=== PATIENT | female | born 1935 | race Caucasian/White ===

== ENCOUNTER 2021-12-31 14:07 | Emergency (ER) | payer MEDICARE, OTHER ==
[~2021-12-31] VITALS: Ht 160 cm; Wt 60.0 kg
[2021-12-31] MEDS ORDERED: NS IV 1000 ML 1,000 ML IV STA (14:22)
--- NOTE | 2021-12-31 14:24 | ED General ---
General Chief Complaint: General Problems/Pain Stated Complaint: UTI,DEHYDRATION Source of Information: Patient, EMS, Family History of Present Illness Date Seen by Provider: Dec 31, 2021 Time Seen by Provider: 14:09 Initial Comments 86-year-old female presenting by EMS from home. She had increased weakness and fatigue today. She had complained to her family that she was having pains in her chest and neck last night. She denied having any new pains here in the ED but states she has some chronic generalized pain. She denies fever or chills. She has had a history of recurrent UTIs and dehydration. In the past she has had similar symptoms as today when she had bladder infections. She does take some chronic antibiotics to treat for a chronic UTI. Timing/Duration: 2-3 Days, Getting Worse Severity: Moderate Modifying Factors: worse with Movement Associated Systoms: Chest Pain (Told her family that she had chest pain last night); No Cough, No Diaphoresis, No Fever/Chills, No Headaches; Loss of Appetite, Malaise; No Nausea/Vomiting, No Rash, No Seizure, No Shortness of Air, No Syncope; Weakness (Generalized) Allergies and Home Medications Allergies Coded Allergies: Sulfa (Sulfonamide Antibiotics) (Verified Allergy, Unknown, 12/31/21) codeine (Verified Allergy, Unknown, 12/31/21) iodine (Verified Allergy, Unknown, 12/31/21) Patient Home Medication List Home Medication List Reviewed: Yes Cephalexin (Cephalexin) 500 Mg Capsule, 500 MG PO TID Prescribed by: ERMIAS ELLIOTT on 12/31/21 1631 Review of Systems Review of Systems Constitutional: see HPI EENTM: no symptoms reported Respiratory: no symptoms reported Cardiovascular: see HPI Gastrointestinal: No nausea, No vomiting Genitourinary: frequency, incontinence Musculoskeletal: back pain, joint pain, neck pain Skin: No rash Psychiatric/Neurological: See HPI; Denies Headache; Weakness Hematologic/Lymphatic: Denies Blood Clots Past Lcclnor-Rihskz-Ivurot Hx Patient Social History Tobacco Use?: No Past Medical History Surgery/Hospitalization HX: Chronic UTI Physical Exam Vital Signs Vital Signs - First Documented 12/31/21 14:15 Temp 35.9 Pulse 55 Resp 16 B/P (MAP) 102/60 (74) Pulse Ox 96 O2 Delivery Room Air Capillary Refill : Height, Weight, BMI Height: '" Weight: lbs. oz. kg; BMI Method: General Appearance: No Apparent Distress, Chronically ill, Thin, Other (Appears older than stated age) HEENT: No Moist Mucous Membranes (Slightly dry mucous membranes) Neck: Non Tender, Supple Respiratory: Chest Non Tender, Lungs Clear, Normal Breath Sounds, No Accessory Muscle Use, No Respiratory Distress Cardiovascular: Regular Rate, Rhythm, Normal Peripheral Pulses Gastrointestinal: Normal Bowel Sounds, No Pulsatile Mass, Non Tender, Soft Rectal: Deferred Extremity: Normal Capillary Refill, No Pedal Edema Neurologic/Psychiatric: Alert, Oriented x3 Skin: Normal Color, Warm/Dry Progress/Results/Core Measures Suspected Sepsis SIRS Temperature: Pulse: Respiratory Rate: Laboratory Tests 12/31/21 14:13: White Blood Count 13.1H Blood Pressure / Mean: Laboratory Tests 12/31/21 14:13: Creatinine 1.50H, Platelet Count 198, Total Bilirubin 0.6 Results/Orders Lab Results Laboratory Tests Test 12/31/21 14:13 Range/Units White Blood Count 13.1 H 4.3-11.0 10^3/uL Red Blood Count 2.84 L 3.80-5.11 10^6/uL Hemoglobin 9.8 L 11.5-16.0 g/dL Hematocrit 30 L 35-52 % Mean Corpuscular Volume 106 H 80-99 fL Mean Corpuscular Hemoglobin 35 H 25-34 pg Mean Corpuscular Hemoglobin Concent 33 32-36 g/dL Red Cell Distribution Width 15.9 H 10.0-14.5 % Platelet Count 198 130-400 10^3/uL Mean Platelet Volume 10.2 9.0-12.2 fL Immature Granulocyte % (Auto) 1 % Neutrophils (%) (Auto) 84 H 42-75 % Lymphocytes (%) (Auto) 6 L 12-44 % Monocytes (%) (Auto) 9 0-12 % Eosinophils (%) (Auto) 0 0-10 % Basophils (%) (Auto) 0 0-10 % Neutrophils # (Auto) 11.0 H 1.8-7.8 10^3/uL Lymphocytes # (Auto) 0.8 L 1.0-4.0 10^3/uL Monocytes # (Auto) 1.2 H 0.0-1.0 10^3/uL Eosinophils # (Auto) 0.0 0.0-0.3 10^3/uL Basophils # (Auto) 0.1 0.0-0.1 10^3/uL Immature Granulocyte # (Auto) 0.1 0.0-0.1 10^3/uL Neutrophils % (Manual) 85 % Lymphocytes % (Manual) 6 % Monocytes % (Manual) 8 % Eosinophils % (Manual) 1 % Urine Color YELLOW Urine Clarity CLOUDY Urine pH 6.0 5-9 Urine Specific [place] 1.015 L 1.016-1.022 Urine Protein 1+ H NEGATIVE Urine Glucose (UA) TRACE H NEGATIVE Urine Ketones TRACE H NEGATIVE Urine Nitrite NEGATIVE NEGATIVE Urine Bilirubin NEGATIVE NEGATIVE Urine Urobilinogen 0.2 < = 1.0 MG/DL Urine Leukocyte Esterase 2+ H NEGATIVE Urine RBC (Auto) 2+ H NEGATIVE Urine RBC NONE /HPF Urine WBC TNTC H /HPF Urine Crystals NONE /LPF Urine Bacteria NEGATIVE /HPF Urine Casts NONE /LPF Urine Mucus NEGATIVE /LPF Urine Culture Indicated YES Sodium Level 136 135-145 MMOL/L Potassium Level 4.5 3.6-5.0 MMOL/L Chloride Level 100 98-107 MMOL/L Carbon Dioxide Level 25 21-32 MMOL/L Anion Gap 11 5-14 MMOL/L Blood Urea Nitrogen 34 H 7-18 MG/DL Creatinine 1.50 H 0.60-1.30 MG/DL Estimat Glomerular Filtration Rate 33 BUN/Creatinine Ratio 23 Glucose Level 181 H 70-105 MG/DL Calcium Level 8.6 8.5-10.1 MG/DL Corrected Calcium 8.9 8.5-10.1 MG/DL Total Bilirubin 0.6 0.1-1.0 MG/DL Aspartate Amino Transf (AST/SGOT) 22 5-34 U/L Alanine Aminotransferase (ALT/SGPT) < 5 0-55 U/L Alkaline Phosphatase 45 40-136 U/L Total Protein 6.2 L 6.4-8.2 GM/DL Albumin 3.6 3.2-4.5 GM/DL My Orders Orders - ERMIAS ELLIOTT MD Comprehensive Metabolic Panel (12/31/21 14:22) Ua Culture If Indicated (12/31/21 14:22) Ed Iv/Invasive Line Start (12/31/21 14:22) Cbc With Automated Diff (12/31/21 14:22) Straight Cath For Spec.-Adult (12/31/21 14:22) Ns Iv 1000 Ml (Sodium Chloride 0.9%) (12/31/21 14:22) Urine Culture (12/31/21 14:13) Manual Differential (12/31/21 14:13) Ceftriaxone 1 Gm Pre-Mix (Rocephin 1 Gm (12/31/21 15:20) Ekg Tracing (12/31/21 16:25) Vital Signs/I&O 12/31/21 12/31/21 14:15 15:59 Temp 35.9 35.9 Pulse 55 83 Resp 16 16 B/P (MAP) 102/60 (74) 109/58 Pulse Ox 96 98 O2 Delivery Room Air Room Air Capillary Refill : Progress Note #1: Progress Note Check basic labs as well as urinalysis. Give IV fluids 1 L normal saline for hydration. Differential diagnosis includes UTI, sepsis, dehydration, electrolyte imbalance, anemia Progress Note #2: Progress Note Labs show an elevated white blood cell count of 13.1 with anemia as her hemoglobin is 9.8. Her chemistry panel shows some renal insufficiency or dehydration with a creatinine of 1.5. Urinalysis does show signs of infection. The culture will be sent. Administer Rocephin 1 g IV and continue with cephalex in for UTI. Counseled to follow-up through the clinic for continued concerns and increase fluid intake. ECG Initial ECG Impression Date: Dec 31, 2021 Initial ECG Impression Time: 16:18 Initial ECG Rate: 53 Initial ECG Rhythm: Normal Sinus Initial ECG Comparisson: No Previous ECG Available Comment Sinus rhythm with a heart rate of 53 bpm. PVC complexes are present. Right bundle branch block. VT interval 122 ms. QT interval 497 ms with a QTc interval 467 ms. She has no acute STEMI findings. There is no prior tracing available for comparison. Departure Impression Primary Impression: Cystitis without hematuria Additional Impression: Dehydration Disposition: 01 HOME, SELF-CARE Condition: Stable Departure-Patient Inst. Decision time for Depature: 16:29 Referrals: AMBER OZUNA MD (PCP/Family) Primary Care Physician Patient Instructions: Urinary Tract Infection, Adult ED, Dehydration, Adult ED Add. Discharge Instructions: Take the full course of antibiotics to treat for urine infection. Try to drink more water to help flush out your urine and clear the infection Check with clinic for continued concerns All discharge instructions reviewed with patient and/or family. Voiced understanding. Scripts Cephalexin (Cephalexin) 500 Mg Capsule 500 MG PO TID for UTI for 10 Days, #30 CAP 0 Refills Prov: REMIAS ELLIOTT MD 12/31/21 ERMIAS ELLIOTT MD Dec 31, 2021 14:24
[2021-12-31 14:39] LABS: BASOPHILS # (AUTO) 0.1 10^3/uL (0.0-0.1); BASOPHILS % (AUTO) 0 % (0-10); EOSINOPHILS % (AUTO) 0 % (0-10); HEMATOCRIT 30 % (35-52); HEMOGLOBIN 9.8 g/dL (11.5-16.0); LYMPHOCYTES # (AUTO) 0.8 10^3/uL (1.0-4.0); LYMPHOCYTES % (AUTO) 6 % (12-44); MEAN CORPUSCULAR HEMOGLOBIN 35 pg (25-34); MEAN CORPUSCULAR HGB CONC 33 g/dL (32-36); MEAN CORPUSCULAR VOLUME 106 fL (80-99); MEAN PLATELET VOLUME 10.2 fL (9.0-12.2); MONOCYTES # (AUTO) 1.2 10^3/uL (0.0-1.0); MONOCYTES % (AUTO) 9 % (0-12); NEUTROPHILS % (AUTO) 84 % (42-75); PLATELET COUNT 198 10^3/uL (130-400); WHITE BLOOD COUNT 13.1 10^3/uL (4.3-11.0)
[2021-12-31 14:44] LABS: BILIRUBIN,URINE NEGATIVE (NEGATIVE); COLOR,URINE YELLOW; GLUCOSE, URINE (UA) TRACE (NEGATIVE); KETONES,URINE TRACE (NEGATIVE); LEUKOCYTE ESTERASE ,URINE 2+ (NEGATIVE); NITRITE,URINE NEGATIVE (NEGATIVE); PROTEIN,URINE 1+ (NEGATIVE)
[2021-12-31 14:47] LABS: BACTERIA,URINE NEGATIVE /HPF; CLARITY,URINE CLOUDY; WBC,URINE TNTC /HPF
[2021-12-31 14:54] LABS: ALANINE AMINOTRANSFERASE < 5 U/L (0-55); ALBUMIN 3.6 GM/DL (3.2-4.5); ALKALINE PHOSPHATASE 45 U/L (40-136); BILIRUBIN,TOTAL 0.6 MG/DL (0.1-1.0); BUN/CREATININE RATIO 23; CALCIUM 8.6 MG/DL (8.5-10.1); CARBON DIOXIDE 25 MMOL/L (21-32); CHLORIDE 100 MMOL/L (98-107); GFR ESTIMATED 33; GLUCOSE 181 MG/DL (70-105); POTASSIUM 4.5 MMOL/L (3.6-5.0); SODIUM 136 MMOL/L (135-145); TOTAL PROTEIN 6.2 GM/DL (6.4-8.2)
[2021-12-31] MEDS ORDERED: cefTRIAXone 1 GM PRE-MIX 50 ML IV STA (15:20)
[2021-12-31 15:22] LABS: EOSINOPHILS % (MANUAL) 1 %; LYMPHOCYTES % (MANUAL) 6 %; MONOCYTES % (MANUAL) 8 %; NEUTROPHILS % (MANUAL) 85 %
[2021-12-31 15:59] VITALS: BP 109/58
[2021-12-31] MEDS ORDERED: CEPH500C PO (16:31)
== END 2021-12-31 16:37 | disposition home or self-care (01) ==
LOC: ER FS 14:09
DX: N30.90 Cystitis, unspecified without hematuria (principal); E86.0 Dehydration
CPT/HCPCS: 36415; 51701; 80053; 81000; 85007; 85027; 87077; 87088; 93005

== ENCOUNTER → 2022-03-22 | Outpatient (CLI) | payer MEDICARE, OTHER ==
[~2022-03-22] MED LIST: CEPH500C PO
[2022-03-22 14:28] LABS: BILIRUBIN,URINE NEGATIVE (NEGATIVE); CLARITY,URINE TURBID; COLOR,URINE YELLOW; GLUCOSE, URINE (UA) NEGATIVE (NEGATIVE); KETONES,URINE NEGATIVE (NEGATIVE); LEUKOCYTE ESTERASE ,URINE 3+ (NEGATIVE); NITRITE,URINE NEGATIVE (NEGATIVE); PROTEIN,URINE TRACE (NEGATIVE)
[2022-03-22 15:13] LABS: RBC,URINE 0-2 /HPF; WBC,URINE TNTC /HPF
[2022-03-22 15:14] LABS: BACTERIA,URINE MODERATE /HPF; SQUAMOUS EPITHELIAL CELL,UR 0-2 /HPF
[2022-03-22 15:15] LABS: HYALINE CASTS, URINE RARE /LPF
== END ==
PROVIDERS: ATTEND Family Medicine
DX: R82.79 Other abnormal findings on microbiological examination of urine (principal)
CPT/HCPCS: 81000; 87077; 87088; 87186

== ENCOUNTER → 2022-04-04 | Outpatient (CLI) | payer MEDICARE, OTHER ==
[2022-04-04 17:06] LABS: BILIRUBIN,URINE NEGATIVE (NEGATIVE); CLARITY,URINE SL CLOUDY; COLOR,URINE YELLOW; GLUCOSE, URINE (UA) TRACE (NEGATIVE); KETONES,URINE NEGATIVE (NEGATIVE); LEUKOCYTE ESTERASE ,URINE 1+ (NEGATIVE); NITRITE,URINE NEGATIVE (NEGATIVE); PROTEIN,URINE NEGATIVE (NEGATIVE)
[2022-04-04 17:12] LABS: BACTERIA,URINE MODERATE /HPF; RBC,URINE RARE /HPF; SQUAMOUS EPITHELIAL CELL,UR 0-2 /HPF; WBC,URINE 25-50 /HPF
== END ==
PROVIDERS: ATTEND Family Medicine
DX: N39.0 Urinary tract infection, site not specified (principal)
CPT/HCPCS: 81000; 87088

== ENCOUNTER 2022-06-17 10:04 | Emergency (ER) | payer MEDICARE, OTHER ==
[~2022-06-17] VITALS: Ht 157.5 cm; Wt 53.5 kg
[2022-06-17] MEDS ORDERED: NS IV 500 ML 500 ML IV STA (10:27)
[2022-06-17 10:30] LABS: BASOPHILS # (AUTO) 0.1 10^3/uL (0.0-0.1); BASOPHILS % (AUTO) 2 % (0-10); EOSINOPHILS # (AUTO) 0.3 10^3/uL (0.0-0.3); EOSINOPHILS % (AUTO) 5 % (0-10); HEMATOCRIT 33 % (35-52); HEMOGLOBIN 10.8 g/dL (11.5-16.0); LYMPHOCYTES # (AUTO) 1.1 10^3/uL (1.0-4.0); LYMPHOCYTES % (AUTO) 19 % (12-44); MEAN CORPUSCULAR HEMOGLOBIN 33 pg (25-34); MEAN CORPUSCULAR HGB CONC 33 g/dL (32-36); MEAN CORPUSCULAR VOLUME 100 fL (80-99); MEAN PLATELET VOLUME 9.7 fL (9.0-12.2); MONOCYTES # (AUTO) 0.4 10^3/uL (0.0-1.0); MONOCYTES % (AUTO) 7 % (0-12); NEUTROPHILS # (AUTO) 3.9 10^3/uL (1.8-7.8); NEUTROPHILS % (AUTO) 67 % (42-75); PLATELET COUNT 240 10^3/uL (130-400); WHITE BLOOD COUNT 5.8 10^3/uL (4.3-11.0)
[2022-06-17 10:38] LABS: INR 0.9 (0.8-1.4); PROTHROMBIN TIME PATIENT 12.9 SEC (12.2-14.7)
--- NOTE | 2022-06-17 10:41 | ED General ---
General Chief Complaint: General Problems/Pain Stated Complaint: LETHARGY Nursing Triage Note: PT TO ROOM [facility] EMS WITH C/O FEELING "MORE TIRED THAT USUAL". PT DENIES ANY OTHER C/O. PT DENIES PAIN. NURSE FROM [facility] STATES THAT PT WAS FEELING TIRED. Source of Information: Patient, EMS, Penitent[facility] Records History of Present Illness Date Seen by Provider: Jun 17, 2022 Time Seen by Provider: 10:12 Initial Comments 86-year-old female presenting by EMS with complaints of feeling more tired than usual. She denies having any pain anywhere. She states that she just did not feel like getting up out of bed. She denies headache, nausea, vomiting, chest pain, cough, abdominal pain, nausea, vomiting, pain with urination. She did just finish antibiotics for UTI. She does have a dry mouth and was asking to drink some water. Otherwise she denied any complaints other than being tired. Associated Systoms: No Chest Pain, No Cough, No Diaphoresis, No Fever/Chills, No Headaches, No Nausea/Vomiting, No Seizure, No Shortness of Air, No Syncope Allergies and Home Medications Allergies Coded Allergies: Sulfa (Sulfonamide Antibiotics) (Verified Allergy, Unknown, 12/31/21) codeine (Verified Allergy, Unknown, 12/31/21) iodine (Verified Allergy, Unknown, 12/31/21) Patient Home Medication List Home Medication List Reviewed: Yes Cefdinir (Cefdinir) 300 Mg Capsule, 300 MG PO BID Prescribed by: ERMIAS ELLIOTT on 06/17/22 1139 Discontinued Medications Cephalexin (Cephalexin) 500 Mg Capsule, 500 MG PO TID Prescribed by: ERMIAS ELLIOTT on 12/31/21 1631 Last Action: Discontinued Review of Systems Review of Systems Constitutional: No chills, No fever EENTM: no symptoms reported; No nose congestion Respiratory: No cough, No short of breath Cardiovascular: No chest pain Gastrointestinal: No nausea, No vomiting Genitourinary: No dysuria Musculoskeletal: no symptoms reported Skin: No rash Psychiatric/Neurological: Denies Headache Hematologic/Lymphatic: Denies Blood Clots Past Kpuzupl-Nndrxq-Clakco Hx Patient Social History Tobacco Use?: No Smoking Status: Never a Smoker Smokeless Tobacco Frequency: Never a User Use of E-Cig and/or Vaping dev: No Use of E-Cig and/or Vaping Miki: Never a User Substance use?: No Alcohol Use?: No Pt feels they are or have been: No Immunizations Up To Date First/Initial COVID19 Vaccinat: 2020 Second COVID19 Vaccination Emanuel: 2020 Past Medical History Surgery/Hospitalization HX: Chronic UTI, Dementia, Atrial Fibrillation, hypertension, Parkinsons Physical Exam Vital Signs Vital Signs - First Documented 06/17/22 10:05 Temp 36.4 Pulse 72 Resp 15 B/P (MAP) 120/53 (75) Pulse Ox 100 O2 Delivery Room Air Capillary Refill : Less Than 3 Seconds Height, Weight, BMI Height: '" Weight: lbs. oz. kg; 21.00 BMI Method: General Appearance: No Apparent Distress HEENT: PERRL/EOMI; No Moist Mucous Membranes (slightly dry mucus membranes) Respiratory: Chest Non Tender, Lungs Clear, Normal Breath Sounds, No Accessory Muscle Use, No Respiratory Distress Cardiovascular: Regular Rate, Rhythm, Normal Peripheral Pulses Gastrointestinal: Normal Bowel Sounds, No Pulsatile Mass, Non Tender, Soft Rectal: Deferred Extremity: Normal Capillary Refill, Normal Inspection, No Calf Tenderness, Pedal Edema (1+ BLE edema) Neurologic/Psychiatric: Alert, career information specialist II-XII Norm as Tested Skin: Normal Color, Warm/Dry Progress/Results/Core Measures Suspected Sepsis SIRS Temperature: Pulse: 72 Respiratory Rate: 15 Laboratory Tests 06/17/22 10:26: White Blood Count 5.8 Blood Pressure 120 /53 Mean: 75 Laboratory Tests 06/17/22 10:13: Creatinine 1.22, INR Comment 0.9, Total Bilirubin 0.4 06/17/22 10:26: Platelet Count 240 Results/Orders Lab Results Laboratory Tests Test 06/17/22 10:13 06/17/22 10:26 06/17/22 10:42 Range/Units Prothrombin Time 12.9 12.2-14.7 SEC INR Comment 0.9 0.8-1.4 Activated Partial Thromboplast Time 26 24-35 SEC Sodium Level 134 L 135-145 MMOL/L Potassium Level 4.4 3.6-5.0 MMOL/L Chloride Level 97 L 98-107 MMOL/L Carbon Dioxide Level 28 21-32 MMOL/L Anion Gap 9 5-14 MMOL/L Blood Urea Nitrogen 28 H 7-18 MG/DL Creatinine 1.22 0.60-1.30 MG/DL Estimat Glomerular Filtration Rate 43 BUN/Creatinine Ratio 23 Glucose Level 95 70-105 MG/DL Calcium Level 9.0 8.5-10.1 MG/DL Corrected Calcium 9.6 8.5-10.1 MG/DL Magnesium Level 2.1 1.6-2.4 MG/DL Total Bilirubin 0.4 0.1-1.0 MG/DL Aspartate Amino Transf (AST/SGOT) 13 5-34 U/L Alanine Aminotransferase (ALT/SGPT) < 5 0-55 U/L Alkaline Phosphatase 45 40-136 U/L Troponin I < 0.30 <0.30 NG/ML Pro-B-Type Natriuretic Peptide 1263.0 H <450.0 PG/ML Total Protein 6.0 L 6.4-8.2 GM/DL Albumin 3.3 3.2-4.5 GM/DL White Blood Count 5.8 4.3-11.0 10^3/uL Red Blood Count 3.29 L 3.80-5.11 10^6/uL Hemoglobin 10.8 L 11.5-16.0 g/dL Hematocrit 33 L 35-52 % Mean Corpuscular Volume 100 H 80-99 fL Mean Corpuscular Hemoglobin 33 25-34 pg Mean Corpuscular Hemoglobin Concent 33 32-36 g/dL Red Cell Distribution Width 18.6 H 10.0-14.5 % Platelet Count 240 130-400 10^3/uL Mean Platelet Volume 9.7 9.0-12.2 fL Immature Granulocyte % (Auto) 0 % Neutrophils (%) (Auto) 67 42-75 % Lymphocytes (%) (Auto) 19 12-44 % Monocytes (%) (Auto) 7 0-12 % Eosinophils (%) (Auto) 5 0-10 % Basophils (%) (Auto) 2 0-10 % Neutrophils # (Auto) 3.9 1.8-7.8 10^3/uL Lymphocytes # (Auto) 1.1 1.0-4.0 10^3/uL Monocytes # (Auto) 0.4 0.0-1.0 10^3/uL Eosinophils # (Auto) 0.3 0.0-0.3 10^3/uL Basophils # (Auto) 0.1 0.0-0.1 10^3/uL Immature Granulocyte # (Auto) 0.0 0.0-0.1 10^3/uL Urine Color YELLOW Urine Clarity CLEAR Urine pH 7.0 5-9 Urine Specific [place] 1.010 L 1.016-1.022 Urine Protein NEGATIVE NEGATIVE Urine Glucose (UA) NEGATIVE NEGATIVE Urine Ketones NEGATIVE NEGATIVE Urine Nitrite NEGATIVE NEGATIVE Urine Bilirubin NEGATIVE NEGATIVE Urine Urobilinogen 0.2 < = 1.0 MG/DL Urine Leukocyte Esterase 1+ H NEGATIVE Urine RBC (Auto) TRACE-I H NEGATIVE Urine RBC NONE /HPF Urine WBC 50-100 H /HPF Urine Crystals NONE /LPF Urine Bacteria TRACE /HPF Urine Casts NONE /LPF Urine Mucus NEGATIVE /LPF Urine Culture Indicated YES My Orders Orders - ERMIAS ELLIOTT MD Cbc With Automated Diff (06/17/22 10:26) Magnesium (06/17/22 10:26) Ekg Tracing (06/17/22 10:26) Comprehensive Metabolic Panel (06/17/22 10:26) Protime With Inr (06/17/22 10:26) Partial Thromboplastin Time (06/17/22 10:26) O2 (06/17/22 10:26) Monitor-Rhythm Ecg Trace Only (06/17/22 10:26) Ed Iv/Invasive Line Start (06/17/22 10:26) Troponin I Fs (06/17/22 10:26) Probnp Fs (06/17/22 10:26) Ua Culture If Indicated (06/17/22 10:26) Ns Iv 500 Ml (Sodium Chloride 0.9%) (06/17/22 10:27) Accucheck Stat ONCE (06/17/22 10:28) Urine Culture (06/17/22 10:42) Ceftriaxone 1 Gm Pre-Mix (Rocephin 1 Gm (06/17/22 11:01) Vital Signs/I&O 06/17/22 06/17/22 10:05 10:05 Temp 36.4 Pulse 72 Resp 15 B/P (MAP) 120/53 (75) Pulse Ox 100 O2 Delivery Room Air Room Air Capillary Refill : Less Than 3 Seconds Blood Pressure Mean: 75 Progress Note #1: Progress Note Obtain basic labs and urinalysis to evaluate for electrolyte abnormality, UTI, dehydration, signs of infection, anemia, renal failure, liver failure, acute myocardial infarction Allow patient to drink water since she was asking for water and her mouth was dry. Try giving 500 mils of normal saline as a bolus to help with hydration Progress Note #2: Time: 10:55 Progress Note CBC shows stable anemia with hemoglobin of 10.8 today. She does not have an elevated white blood cell count. Chemistry panel is also stable without acute significant abnormality. Troponin I is less than 0.3 which is negative. Her urinalysis does show continued signs of urinary tract infection despite recently being on Cipro for 7 days starting on June 05. Her last urine culture with Chelsy López had shown that she should be susceptible to ceftriaxone. We will administer dose of the and continue with cephalosporin at the [facility]. ECG Initial ECG Impression Date: Jun 17, 2022 Initial ECG Impression Time: 10:12 Initial ECG Rate: 74 Initial ECG Rhythm: Normal Sinus Initial ECG Comparisson: Unchanged Comment Sinus rhythm with a heart rate of 74 bpm. AL interval [address] elevation. There is a right bundle branch block. QT interval 425 ms with a QTc interval 452 ms. Overall appears similar to tracing from December 2021. Departure Impression Primary Impression: Cystitis without hematuria Additional Impression: Fatigue Qualified Codes: R53.83 - Other fatigue Disposition: HOME, SELF-CARE Condition: Stable Departure-Patient Inst. Decision time for Depature: 11:37 Referrals: AMBER OZUNA MD (PCP) Primary Care Physician Patient Instructions: Urinary Tract Infection, Adult ED, Fatigue ED Add. Discharge Instructions: Take the full course of antibiotics to treat for UTI. Try to stay hydrated and drink enough water to help flush out the urinary tract infection. Check back with primary care for continued concerns. All discharge instructions reviewed with patient and/or family. Voiced understanding. Scripts Cefdinir (Cefdinir) 300 Mg Capsule 300 MG PO BID for UTI for 7 Days, #14 CAP 0 Refills Prov: ERMIAS ELLIOTT MD 06/17/22 ERMIAS ELLIOTT MD Jun 17, 2022 10:41
[2022-06-17 10:43] LABS: BILIRUBIN,URINE NEGATIVE (NEGATIVE); CLARITY,URINE CLEAR; COLOR,URINE YELLOW; GLUCOSE, URINE (UA) NEGATIVE (NEGATIVE); KETONES,URINE NEGATIVE (NEGATIVE); LEUKOCYTE ESTERASE ,URINE 1+ (NEGATIVE); NITRITE,URINE NEGATIVE (NEGATIVE); PROTEIN,URINE NEGATIVE (NEGATIVE)
[2022-06-17 10:47] LABS: BACTERIA,URINE TRACE /HPF; WBC,URINE 50-100 /HPF
[2022-06-17 10:49] LABS: ALANINE AMINOTRANSFERASE < 5 U/L (0-55); ALBUMIN 3.3 GM/DL (3.2-4.5); ALKALINE PHOSPHATASE 45 U/L (40-136); BILIRUBIN,TOTAL 0.4 MG/DL (0.1-1.0); BUN/CREATININE RATIO 23; CARBON DIOXIDE 28 MMOL/L (21-32); CHLORIDE 97 MMOL/L (98-107); CREATININE SERUM 1.22 MG/DL (0.60-1.30); GFR ESTIMATED 43; GLUCOSE 95 MG/DL (70-105); MAGNESIUM 2.1 MG/DL (1.6-2.4); POTASSIUM 4.4 MMOL/L (3.6-5.0); SODIUM 134 MMOL/L (135-145)
[2022-06-17] MEDS ORDERED: cefTRIAXone 1 GM PRE-MIX 50 ML IV STA (11:01)
[2022-06-17] MEDS ORDERED: CEFD300C3 PO (11:39)
[2022-06-17 11:43] VITALS: BP 126/74
== END 2022-06-17 11:43 | disposition home or self-care (01) ==
LOC: EDUNIT# 10:04 → ER FS 10:05
DX: N30.90 Cystitis, unspecified without hematuria (principal); D64.9 Anemia, unspecified; Z88.2 Allergy status to sulfonamides
CPT/HCPCS: 36415; 80053; 81000; 83735; 83880; 84484; 85025; 85610; 85730; 87088; 93005; 93041

== ENCOUNTER → 2022-07-22 | Outpatient (CLI) | payer MEDICARE, OTHER ==
[~2022-07-22] MED LIST changes: +CEFD300C3 PO
[2022-07-22 08:51] LABS: HEMATOCRIT 31 % (35-52); HEMOGLOBIN 10.1 g/dL (11.5-16.0); MEAN CORPUSCULAR HEMOGLOBIN 33 pg (25-34); MEAN CORPUSCULAR HGB CONC 33 g/dL (32-36); MEAN CORPUSCULAR VOLUME 99 fL (80-99); MEAN PLATELET VOLUME 10.3 fL (9.0-12.2); PLATELET COUNT 228 10^3/uL (130-400); WHITE BLOOD COUNT 8.1 10^3/uL (4.3-11.0)
[2022-07-22 08:52] LABS: BILIRUBIN,URINE NEGATIVE (NEGATIVE); COLOR,URINE YELLOW; GLUCOSE, URINE (UA) NEGATIVE (NEGATIVE); KETONES,URINE NEGATIVE (NEGATIVE); LEUKOCYTE ESTERASE ,URINE 3+ (NEGATIVE); NITRITE,URINE POSITIVE (NEGATIVE); PH,URINE 6.5 (5-9); PROTEIN,URINE TRACE (NEGATIVE)
[2022-07-22 08:56] LABS: BACTERIA,URINE LARGE /HPF; CLARITY,URINE CLOUDY; WBC,URINE TNTC /HPF
[2022-07-22 09:13] LABS: CARBON DIOXIDE 29 MMOL/L (21-32); CHLORIDE 94 MMOL/L (98-107); POTASSIUM 4.7 MMOL/L (3.6-5.0); SODIUM 131 MMOL/L (135-145)
[2022-07-22 09:14] LABS: ALANINE AMINOTRANSFERASE < 5 U/L (0-55); ALBUMIN 3.6 GM/DL (3.2-4.5); ALKALINE PHOSPHATASE 50 U/L (40-136); BILIRUBIN,TOTAL 0.2 MG/DL (0.1-1.0); BUN/CREATININE RATIO 27; CALCIUM 9.1 MG/DL (8.5-10.1); CREATININE SERUM 1.36 MG/DL (0.60-1.30); GFR ESTIMATED 37; GLUCOSE 115 MG/DL (70-105); TOTAL PROTEIN 6.6 GM/DL (6.4-8.2)
== END ==
PROVIDERS: ATTEND Family Medicine
DX: Z01.89 Encounter for other specified special examinations (principal)
CPT/HCPCS: 80053; 81000; 85027; 87077; 87088; 87186